=== PATIENT | male | born 1940 | race Caucasian/White ===

== ENCOUNTER 2023-11-08 08:04 | Outpatient (CLI) | payer MEDICARE, BC, SELFPAY | END 2023-11-08 08:05 | disposition home or self-care (01) | LOC: NFLDREF 11-29 12:26 | PROVIDERS: PCP Internal Medicine; Referring Provider Internal Medicine; Visit Provider Internal Medicine | DX: I10 Essential (primary) hypertension (principal); Z12.5 Encounter for screening for malignant neoplasm of prostate | CPT/HCPCS: 80053; 80061; G0103 ==

== ENCOUNTER 2024-03-08 14:40 | Outpatient (CLI) | payer MEDICARE, SELFPAY | END 2024-03-08 14:41 | disposition home or self-care (01) | LOC: NFLDREF 14:41 | PROVIDERS: PCP Internal Medicine; Visit Provider Internal Medicine | DX: R60.9 Edema, unspecified (principal); I10 Essential (primary) hypertension | CPT/HCPCS: 84443 ==

== ENCOUNTER 2024-11-22 08:15 | Outpatient (CLI) | payer MEDICARE, BC, OTHER, SELFPAY | END 2024-11-22 08:16 | disposition home or self-care (01) | PROVIDERS: PCP Internal Medicine; Visit Provider Internal Medicine | DX: R63.4 Abnormal weight loss (principal); I10 Essential (primary) hypertension; R60.0 Localized edema | CPT/HCPCS: 80053; 80061; 84443 ==

== ENCOUNTER 2024-12-08 10:25 | Emergency (ER) | payer MEDICARE, BC, SELFPAY ==
--- OUTSIDE RECORDS SUMMARY | 2023-02-18 11:08 | XMS_ITS | Continuity of Care Document ---
Author Organization [facility] Address [address] [place] [address] Phone Care Team Providers Care Prevention Rn Name Role Phone Andre Win MD Unavailable Unavailable Allergies, Adverse Reactions, Alerts Substance Reaction Status Criticality erythromycin base Active No Informa tion Sulfa (Sulfonamide Antibiotics) Active No Information Medications Medication Instructions Dosage Effective Dates (start - stop) Status Comments propranolol ER 60 mg capsule,24 hr,extended release take 1 capsule by oral route 2 times every day 60 MG - Active ranitidine 150 mg tablet take 1 tablet by oral route every day - Active melatonin 3 mg tablet take 1 tablet by o ral route every bedtime 1 tablet - Active loperamide 2 mg tablet take 1 tablet by oral route after 1st loose stool and 1 tablet (2 mg) after each next bowel movement; do not exceed 16 mg in 24hrs as needed 2 MG - Active Mapap (acetaminophen) 500 mg capsule take 1 capsule by oral route every hour as needed as needed 500 MG - Active Procedures Procedure Date Ep Intermediate Exam RNFL Refraction Post Operative P O Visit P O Visit Cat/ Ex With Phaco With IOL OC Biometry Refraction Post Operative P O Visit Refraction Post Operative P O Visit Cat/ Ex With Phaco With IOL OC Biometry OC Biometry Pre-operative Exam Pre Pay NOS Refraction RNFL EP Compre Exam W Or Withou Ref 20 Muñoz Aranda Lv III Ep Intermediate Exam Pre Pay NOS RNFL Refraction Corneal Pachymetry EP Compre Exam W Or Withou Ref 19 Muñoz Aranda Lv III Ep Intermediate Exam Pre Pay NOS Refraction RNFL 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, [address], [place], [place], [id number] , [place] tel:[phone] [facility] [place] No Information 3 Quirino Powell. [address], [place], [place], [id number], [place]. [phone] [facility], [address], [place], [place], [id number] , [place] tel:[phone] [facility] [place] pressure check (chief complaint) Open angle with borderline findings, low risk, bilateral 1 Quirino Powell. [address], [place], [place], [id number], [place]. [phone] Referring Provider: Andre Win MD O, [address], [place], [address] . tel:[phone] [facility], [address] [place], [place], [id number] , [place] [phone] [facility] [place] post op (chief complaint) Presence of intraocular lensDry eye syndrome of bilateral lacrimal glands 1 Quirino Powell. [address], [place], [place], [id number], [place]. [phone] Referring Provider: Andre Stevenson, [address], [place], [address] . tel:[phone] Provider: Andre Stevenson, [address], [place], [address] . tel:[phone] [facility], [address], [place], [place], [id number] , [place] tel: [phone] [facility] [place] post op (chief complaint) Presence of intraocular lens 1 Quirino Powell. [address], [place], [place], [id number], [place]. tel:[phone] Referring Provider: Andre Stevenson, [address], [place], [address] . tel:[phone] Provider: Andre Stevenson, [address], [place], [address] . tel:[phone] [facility], [address], [place], [place], [id number] , [place] tel:[phone] [facility] Age-related nuclear cataract, left eye 1 [facility]. [address], [place], [place], [id number], [place]. tel:[phone] [facility], [address], [place], [place], [id number] , [place] tel:[phone] [facility] [place] No Information 1 Quirino Powell. [address], [place], [place], [id number], [place]. tel:[phone] Referring Provider: Andre Stevenson, [address], [place], [address] . tel:[phone] sulting Provider: Andre Stevenson, [address], [place], [address] . tel:[phone] [facility], [address], [place], [place], [id number] , [place] tel: [phone] [facility] [place] Age-related nuclear cataract, left eye 1 Quirino Powell. [address], [place], [place], [id number], [place]. tel:[phone] [facility], [address], [place], [place], [id number] , [place] tel: [phone] [facility] [place] Age-related nuclear cataract, left eye 1 Quirino Powell. [address], [place], [place], [id number], [place]. tel:[phone] [facility], [address], [place], [place], [address] , [place] tel: [phone] [facility] [place] post op of CE IOL OD (chief complaint) cataract (chief complaint) Presence of intraocular lensAge-related nuclear cataract of left eye 1 Quirino Powell. [address], [place], [place], [address], [place]. tel:[phone] Referring Provider: Andre Stevenson, [address], [place], [address] . tel: [phone] sulting Provider: Andre Stevenson, [address], [place], [address] . tel:[phone] [facility], [address], [place], [place], [address] , [place] tel: [phone] [facility] [place] PO (chief complaint) cataract (chief complaint) Presence of intraocular lensAge-related nuclear cataract, left eye 1 Quirino Powell. [address], [place], [place], [id number], [place]. [phone] Referring Provider: Andre Stevenson, [address], [place], [address] . tel:[phone] sulting Provider: Andre Stevenson, [address], [place], [address] . tel:[phone] [facility], [address], [place], [place], [address] , [place] tel:[phone] [facility] Combined forms of age-related cataract, right eye 1 [facility]. [address], [place], [place], [id number], [place]. tel:[phone] [facility], [address], [place], [place], [address] , [place] tel: [phone] [facility] [place] No Information 1 Quirino Powell. [address], [place], [place], [id number], [place]. tel:[phone] Referring Provider: Andre Stevenson, [address], [place], [address] . tel:[phone] sulting Provider: Andre Stevenson, [address], [place], [address] . tel:[phone] [facility], [address], [place], [place], [id number] , [place] tel:[phone] [facility] [place] Combined forms of age-related cataract, right eye 1 Quirino Powell. [address], [place], [place], [address], [place]. tel:[phone] [facility], [address], [place], [place], [address] , [place] tel: [phone] [facility] Combined forms of age-related cataract, bilateralCombin ed forms of age-related cataract, right eye 0 Quirino Powell. [address], [place], [place], [address], [place]. tel:[phone] Referring Provider: Andre Stevenson, [address], [place], [address] . tel:[phone] [facility], [address], [place], [place], [id number] , [place] tel: [phone] [facility] glaucoma, pressure check (chief complaint) blurry vision (chief complaint) Primary open-angle glaucoma, bilateral, mild stageCombined forms of age-related cataract, bilateral 0 Quirino Powell. [address], [place], [place], [id number], [place]. tel:[phone] Referring Provider: Andre Stevenson, [address], [place], [address] . tel:[phone] [facility], [address], [place], [place], [address] , [place] tel: [phone] [facility] [place] glaucoma suspect (chief complaint) Open angle with borderline findings, low risk, bilateral 0 Quirino Powell. [address], [place], [place], [id number], [place]. tel:[phone] Referring Provider: Andre Stevenson, [address], [place], [address] . tel:[phone] [facility], [address], [place], [place], [id number] , [place] tel:[phone] [facility] [place] Glaucoma Suspect (chief complaint) Open angle with borderline findings, low risk, bilateralCombin ed forms of age-related cataract, right eyeAge-related nuclear cataract of left eye 9 Quirino Powell. [address], [place], [place], [address], [place]. tel:[phone] Referring Provider: Andre Stevenson, [address], [place], [address] . tel:[phone] [facility], [address], [place], [place], [id number] , [place] tel:[phone] [facility] [place] glaucoma (chief complaint) Open angle with borderline findings, low risk, bilateral 9 Quirino Powell. [address], [place], [place], [address], [place]. [phone] Referring Provider: Andre Stevenson, [address], [place], [address] . tel:[phone] [facility], [address], [place], [place], [address] , [place] tel:[phone] [facility] [place] blurry vision (chief complaint) Combined forms of age-related cataract, bilateralOpen angle with borderline findings, low risk, bilateral Oct-1 8 Quirino Powell. [address], [place], [place], [id number], [place]. [phone] Referring Provider: Andre Stevenson, [address], [place], [address] . tel:[phone] Family History Family Member Type Diagnosis Age At Onset Brother Problem (finding) hypertension Payers Payer name Insurance type Covered green party ID Authoriza tion(s) Medicare MB [id number] [place] [id number] Social History Type Description Quantity Date Captured Comments Alcohol Use Details Unknown Caffeine Use Details Unknown Tobacco Use Status No Information Smoking Status No Information Sex Male Chief Complaint And Reason For Visit No Information Reason For Referral Reason For Referral No Information Plan Of Treatment Date Type Action Status Patient Education The Eye: Anatomy Sketch completed Patient Education Advance Directives: Car e Instructions completed Patient Education Cataracts: Care Instruc tions completed Patient Education Open-Angle Glaucoma: Ca re Instructions completed Patient Education Open-Angle Glaucoma: Ca re Instructions completed History Of Present Illness Encounter Date Complaint History Of Prese nt Illness pressure check Returning 1m lat e for pressure check. 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 States when getting IOP check results where OD 9 and OS 6. Machine performed was the NCT. Has not used lat in 1m and dorz/bernadette (has not taken since Aug). Denies pain. post op 2 week post op C E/IOL OS and 4 week post op CE/IOL OD. Has noticed an improvement in vision since surgery OU. Vision is clear and is happy with outcome so far OU. Denies pain, flashing lights, floaters, or double vision caused by the surgery OU. Using dorz/bernadette BID OU and latanoprost QHS OU. States he has been using his pred and oflox, used it this morning OU. post op 1 day return for PO IOL OS and for 2 weeks PO IOL OD. VA OS has improved, seeing clearer. VA OD is doing well also. OU feeling comfortable at this time. Using pred and oflox QID OS and latanoprost QHS OU. He has not started dorz-bernadette yet, concerned he will have a skin reaction because he believes he had a reaction to timoptic in the past. post op of CE IOL OD The 80 year old male presents for evaluation of post op of CE IOL OD. Notes improvement to vision OD since surgery. Vision seems brighter and more clear. Denies pain, but states is having FBS and dryness but goes away when instilling OTC drops. Compliant with the instillation of pred and ofloxacin drops 4 times a day with 15 minute break between. cataract VA OS still blur ry and limits overall vision for distance for reading small print. Current glasses are not helping, and this limits his daily function. Would like to proceed with CE IOL OS. PO 1 day post-op CE c IOL OD. Slight burning but no pain. Vision has improved when looking at TV screen. Using oflox and pred OD qid. Also continues using Alphagan OU bid and latanoprost OU qhs. cataract The patient is p resent for evaluation of cataract OS. Visual function impairment: vision is fuzzy in the left eye for both looking at objects from a distance and when looking at small print. Current bifocal gls do not help clear up vision. Unable to perform daily activities due to vision impairment caused by cataract. blurry vision Visual function impairment. Feels VA OU is slightly more fuzzy. Notes difficulties reading captions on the television screen w/ use of RX. Getting worse over the past 6 months. glaucoma, pressure check 1m late for 6m follow up for continued care of Open angle with borderline findings, low risk, bilateral and OCT OU. VA OD doing fair, VA OS doing well w/ use of glasses. Using Alphagan BID OU, last dose 730AM. and latanoprost QHS OU, last dose 06/18/2020 930PM glaucoma suspect 6 month return for continue care of Open angle with borderline findings, low risk, bilateral and VF. Compliant with alphagan BID OU and latanoprost QHS OU. Pt reports he may need a slight tweak in Rx for more clarity up close x months. No other ocular complaints at this time. Glaucoma Suspect 6 month return for continued care of Open angle with borderline findings, low risk, bilateral. Using Travatan Z QHS OU and Alphagan TID OU instead of BID OU. VA OU is good, no ocular complaints at this time. glaucoma 6 month return v isit for continued care of Open angle with borderline findings, low risk, bilateral with VF OU. Using Alphagan BID OU last used 2 days ago and Travatan Z QHS OU as directed. VA OU has not noticed any changes since last visit, denies any pain or discomfort. Needs refills on Alphagan only. blurry vision New patient marni sweeney is due to blurry VA OU,(OD<OS). Has issues with glare x 2 years. Notes he notice some changes in VA OD with amsler grid, noticed this affect for years. Was not diagnosed with MD. Was diagnosed with glaucoma . Is currently using gtt. Functional Status Date Functional Assessmen t No Information Instructions Date Instruction Additional Infor mika Return in 1-2 years with Andre Win M.D. for refract/dilate Related to Open angle with borderline findings, low risk, bilateral Impression/Plan Related to Open angle with borderline findings, low risk, bilateral Return in 1 year sulema Win M.D. for refract/dilate Related to Presence of intraocular lens Impression/Plan Related to Dry e ye syndrome of bilateral lacrimal glands Impression/Plan Related to Prese nce of intraocular lens Keep appt on 08/22 Andre Win M.D. for Post-op refract/dilate Related to Presence of intraocular lens Impression/Plan Related to Prese nce of intraocular lens Return for surgery Related to Ag e-related nuclear cataract of left eye Impression/Plan Related to Prese nce of intraocular lens Impression/Plan Related to Age-r elated nuclear cataract of left eye Return in 1 week sulema Win M.D. for Post-op short Related to Presence of intraocular lens Impression/Plan Related to Prese nce of intraocular lens Impression/Plan Related to Age-r elated nuclear cataract, left eye Impression/Plan Related to Combi sheng forms of age-related cataract, bilateral Return for surgery Related to Co mbined forms of age-related cataract, bilateral Impression/Plan Related to Prima ry open-angle glaucoma, bilateral, mild stage Impression/Plan Related to Combi sheng forms of age-related cataract, bilateral Return in 6 months w mariela Win M.D. for long refract Related to Open angle with borderline findings, low risk, bilateral Impression/Plan Related to Open angle with borderline findings, low risk, bilateral Return in 6 months w mariela Win M.D. for short exam and VF Related to Open angle with borderline findings, low risk, bilateral Impression/Plan Related to Age-r elated nuclear cataract of left eye Impression/Plan Related to Combi sheng forms of age-related cataract, right eye Impression/Plan Related to Open angle with borderline findings, low risk, bilateral Return in 6 months w mariela Win M.D. for long refract Related to Open angle with borderline findings, low risk, bilateral Impression/Plan Related to Open angle with borderline findings, low risk, bilateral Return in 6 months w mariela Win M.D. for short exam and VF Related to Open angle with borderline findings, low risk, bilateral Impression/Plan Related to Open angle with borderline findings, low risk, bilateral Impression/Plan Related to Combi sheng forms of age-related cataract, bilateral Assessments Type Assessment Date No Information Patient Care Teams Name Effective Dates (start - stop) Status Members No Information
--- OUTSIDE RECORDS SUMMARY | 2023-02-18 11:08 | XMS_ITS | Continuity of Care Document ---
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 [address], [place], [place], [id number], [place]. [phone] [facility], [address], [place], [place], [id number] , [place] tel:[phone] [facility] [place] pressure check (chief complaint) Open angle with borderline findings, low risk, bilateral 1 Quirino Powell. [address], [place], [place], [id number], [place]. [phone] Referring Provider: Andre Win MD O, [address], [place], [address] . tel:[phone] [facility], [address] [place], [place], [id number] , [place] [phone] [facility] [place] post op (chief complaint) Presence of intraocular lensDry eye syndrome of bilateral lacrimal glands 1 Quirino Powell. [address], [place], [place], [id number], [place]. [phone] Referring Provider: Andre Stevenson, [address], [place], [address] . tel:[phone] [facility] Provider: Andre Stevenson, [address], [place], [address] . tel:[phone] [facility], [address], [place], [place], [id number] , [place] tel: [phone] [facility] [place] post op (chief complaint) Presence of intraocular lens 1 Quirino Powell. [address], [place], [place], [id number], [place]. tel:[phone] Referring Provider: Andre Stevenson, [address], [place], [address] . tel:[phone] Provider: Andre Stevenson, [address], [place], [address] . tel:[phone] [facility], [address], [place], [place], [id number] , [place] tel:[phone] [facility] Age-related nuclear cataract, left eye 1 [facility]. [address], [place], [place], [id number], [place]. tel:[phone] [facility], [address], [place], [place], [id number] , [place] tel:[phone] [facility] [place] No Information 1 Quirino Powell. [address], [place], [place], [id number], [place]. tel:[phone] Referring Provider: Andre Stevenson, [address], [place], [address] . tel:[phone] sulting Provider: Andre Stevenson, [address], [place], [address] . tel:[phone] [facility], [address], [place], [place], [id number] , [place] tel: [phone] [facility] [place] Age-related nuclear cataract, left eye 1 Quirino Powell. [address], [place], [place], [id number], [place]. tel:[phone] [facility], [address], [place], [place], [id number] , [place] tel: [phone] [facility] [place] Age-related nuclear cataract, left eye 1 Quirino Powell. [address], [place], [place], [id number], [place]. tel:[phone] [facility], [address], [place], [place], [id number] , [place] tel: [phone] [facility] post op of CE IOL OD (chief complaint) cataract (chief complaint) Presence of intraocular lensAge-related nuclear cataract of left eye 1 Quirino Powell. [address], [place], [place], [id number], [place]. tel:[phone] Referring Provider: Andre Stevenson, [address], [place], [address] . tel:[phone] sulting Provider: Andre Stevenson, [address], [place], [address] . tel:[phone] [facility], [address], [place], [place], [id number] , [place] tel: [phone] [facility] [place] PO (chief complaint) cataract (chief complaint) Presence of intraocular lensAge-related nuclear cataract, left eye 1 Quirino Powell. [address], [place], [place], [id number], [place]. [phone] Referring Provider: Andre Stevenson, [address], [place], [address] . tel:[phone] sulting Provider: Andre Stevenson, [address], [place], [address] . tel:[phone] [facility], [address], [place], [place], [id number] , [place] tel:[phone] [facility] Combined forms of age-related cataract, right eye 1 [facility]. [address], [place], [place], [id number], [place]. tel:[phone] [facility], [address], [place], [place], [address] , [place] tel: [phone] [facility] [place] No Information 1 Quirino Powell. [address], [place], [place], [id number], [place]. tel:[phone] Referring Provider: Andre Stevenson, [address], [place], [address] . tel:[phone] sulting Provider: Andre Stevenson, [address], [place], [address] . tel:[phone] [facility], [address], [place], [place], [address] , [place] tel:[phone] [facility] Combined forms of age-related cataract, right eye 1 Quirino Powell. [address], [place], [place], [id number], [place]. tel:[phone] [facility], [address], [place], [place], [address] , [place] tel: [phone] [facility] Combined forms of age-related cataract, bilateralCombin ed forms of age-related cataract, right eye 0 Quirino Powell. [address], [place], [place], [address], [place]. tel:[phone] Referring Provider: Andre Stevenson, [address], [place], [address] . tel:[phone] [facility], [address], [place], [place], [id number] , [place] tel: [phone] [facility] glaucoma, pressure check (chief complaint) blurry vision (chief complaint) Primary open-angle glaucoma, bilateral, mild stageCombined forms of age-related cataract, bilateral 0 Quirino Powell. [address], [place], [place], [id number], [place]. tel:[phone] Referring Provider: Andre Stevenson, [address], [place], [address] . tel:[phone] [facility], [address], [place], [place], [id number] , [place] tel: [phone] [facility] glaucoma suspect (chief complaint) Open angle with borderline findings, low risk, bilateral 0 Quirino Powell. [address], [place], [place], [id number], [place]. tel:[phone] Referring Provider: Andre Stevenson, [address], [place], [address] . tel:[phone] [facility], [address], [place], [place], [address] , [place] tel:[phone] [facility] Glaucoma Suspect (chief complaint) Open angle with borderline findings, low risk, bilateralCombin ed forms of age-related cataract, right eyeAge-related nuclear cataract of left eye 9 Quirino Powell. [address], [place], [place], [id number], [place]. tel:[phone] Referring Provider: Andre Stevenson, [address], [place], [address] . tel:[phone] [facility], [address], [place], [place], [id number] , [place] tel:[phone] [facility] glaucoma (chief complaint) Open angle with borderline findings, low risk, bilateral 9 Quirino Powell. [address], [place], [place], [id number], [place]. [phone] Referring Provider: Andre Stevenson, [address], [place], [address] . tel:[phone] [facility], [address], [place], [place], [id number] , [place] tel:[phone] [facility] blurry vision (chief complaint) Combined forms of age-related cataract, bilateralOpen angle with borderline findings, low risk, bilateral Oct-1 8 Quirino Powell. [address], [place], [place], [id number], [place]. [phone] Referring Provider: Andre Stevenson, [address], [place], [address] . tel:[phone] Family History Family Member Type Diagnosis Age At Onset Brother Problem (finding) hypertension Payers Payer name Insurance type Covered constitution party ID Authoriza tion(s) Medicare MB [id number] [place] [id number] Social History Type Description Quantity Date Captured [...] e for pressure check. 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 States when getting IOP check [...] sheng forms of age-related cataract, right eye Return in 6 months w mariela Win [...]
[2024-12-08] VITALS (44 sets, daily range): BP systolic 134–174; BP diastolic 72–90; PULSE 63–81; RESP 16–20; TEMP 36.3; O2SAT 92–99; BMI 17.8
--- NOTE | 2024-12-08 11:08 | CRLHL7_ITS ---
For Patients: As a result of the Century Cures Act, medical imaging exams and procedure reports are released immediately into your electronic medical record. You may view this report before your referring provider. If you have questions, please contact your health care provider. INDICATION: Fall. Head strike. No additional clinical history is given. COMPARISON: None available. TECHNIQUE: CT of the cervical spine without intravenous contrast. Please note that all CT scans at this facility use dose modulation, iterative reconstruction, and/or weight-based dosing when appropriate to reduce radiation dose to as low as reasonably achievable. FINDINGS: Alignment: Degenerative grade 1 anterolisthesis of C6 on C7. No significant widening of the intervertebral disc spaces, interfacetal joints or interspinous distances. Vertebrae: Vertebral bodies, pedicles, laminae, articular, transverse and spinous processes are intact. Mild disc degeneration C4-C5 and C7-T1. Anterior annular calcifications/ossification are noted C4-C5, C5-C6 and C6-C7. Bilateral multilevel facet joint osteoarthrosis. The left C2-C3 facet joint is fused. 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 Soft Tissues: No perivertebral edema or hemorrhage. Extraspinal Anatomy: No significant findings. Biapical pleural-parenchymal scar is noted incidentally. IMPRESSION: No acute traumatic injury is identified. Incidental findings described in the body of the report. Please note that all CT scans at this facility use dose modulation, iterative reconstruction, and/or weight-based dosing when appropriate to reduce radiation dose to as low as reasonably achievable. Dictated by Reji Landon MD @ 12/08/2024 12:18:11 PM (Electronically Signed)
--- NOTE | 2024-12-08 11:08 | CRLHL7_ITS ---
For Patients: As a result of the Century Cures Act, medical imaging exams and procedure reports are released immediately into your electronic medical record. You may view this report before your referring provider. If you have questions, please contact your health care provider. INDICATION: FELL, HIT HEAD, ABRASION TOP OF HEAD. (Sic) COMPARISON: None available. TECHNIQUE: CT of the head without intravenous contrast. Please note that all CT scans at this facility use dose modulation, iterative reconstruction, and/or weight-based dosing when appropriate to reduce radiation dose to as low as reasonably achievable. FINDINGS: No acute traumatic injury is identified. No acute infarct. No intracranial mass or mass effect. No hydrocephalus. No intracranial hemorrhage. 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 Bilateral cerebral white matter symmetrical mildly inhomogeneous white matter hypoattenuation consistent with chronic ischemic gliotic changes. RapidAI ASPECTS Score: Not performed/available at the time of dictation. Intact skull base and cranial vault. Visualized orbits are without significant incidental findings. Bilateral lens implants are noted incidentally. Right maxillary sinus floor retention cyst. The visualized paranasal sinuses and mastoid air cells are otherwise clear. Focal left parietal scalp paramedian soft tissue swelling (8; 79) and subcutaneous round lucency consistent with a laceration and associated edema/hemorrhage. IMPRESSION: 1. Left parietal scalp injury as above corresponding to the clinical history. No underlying calvarial fracture. No intracranial hemorrhage or other acute/significant incidental findings. 2. Additional findings as above. Please note that all CT scans at this facility use dose modulation, iterative reconstruction, and/or weight-based dosing when appropriate to reduce radiation dose to as low as reasonably achievable. Dictated by Reji Landon MD @ 12/08/2024 12:10:44 PM (Electronically Signed)
[2024-12-08 11:31] LABS: Basophils Absolute Auto 0.03 K/uL (0.00-0.30); Basophils Percent Auto 0.6 % (0.0-3.0); Eosinophils Absolute Auto 0.06 K/uL (0.00-0.50); Eosinophils Percent Auto 1.3 % (0.0-7.0); Hematocrit 33.6 % (37.0-53.0); Hemoglobin* 10.6 gm/dL (13.5-17.5); Mean Corpuscular HGB Conc 32 gm/dL (32-36); Mean Corpuscular Hemoglobin 32 pg (26-34); Mean Corpuscular Volume 101 fL (80-100); Monocytes Percent Auto 8.4 % (0.0-11.0); Neutrophils Percent Auto 81.7 % (42.0-72.0); Platelet Count* 244 K/uL (140-440); RDW Coefficient of Variation % 12.8 % (11.5-15.5); Red Blood Count 3.33 m/uL (4.30-5.90); White Blood Count* 4.77 K/uL (4.50-11.00)
[2024-12-08 11:40] LABS: Slide Review Reflex No
[2024-12-08 11:42] LABS: Chloride* 102 mmol/L (96-114); Potassium* 4.8 mmol/L (3.6-5.1); Sodium* 140 mmol/L (135-149)
[2024-12-08 11:45] LABS: Anion Gap 9 mEq/L (7-15); Blood Urea Nitrogen* 61 mg/dL (7-30); Calcium* 9.6 mg/dL (8.4-10.6); Carbon Dioxide* 29 mmol/L (20-32); Creatinine* 1.5 mg/dL (0.5-1.5); Est. Creatinine Clearance* 25.41; Estimated Glomerular Filt Rate 45 ml/min; Glucose* 107 mg/dL (60-115)
--- NOTE | 2024-12-08 11:45 | ED.FALL ---
HPI - Fall General Date Seen: 12/08/24 Chief Complaint: Fall/Minor Trauma Stated Complaint: Fall, head lac Time Seen by Provider: 12/08/24 10:36 Source: patient Mode of arrival: ambulatory Limitations: no limitations History of Present Illness HPI Narrative: Patient is an 84-year-old will presenting to the emergency department after a fall. 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 He believes he hit his head on the edge of the kitchen table. He is not remember any dizziness or lightheadedness prior to the fall but he says he does not remember exactly what happened. Was able to get himself up. His family rate came to check on him as he does daily and notice the patient is sitting at the table and acting normally but was covered in blood. The patient was able to get the bleeding to stop prior to the family members arrival. Patient is acting normally according to the family member. Patient denies any other injuries. No other concerns noted he denies fevers, chills, chest pain, shortness of breath, headache, vision changes, weakness, numbness. Related Data Home Medications ?Medication ?Instructions ?Recorded ?Confirmed bismuth subsalicylate 262 mg/15 mL 262 mg PO Q30-60M PRN 11/01/23 11/22/24 oral suspension (Kaopectate (bismuth subsalicylate)) calcium carbonate (Tums) 200 mg PO QHS 11/01/23 11/22/24 fluticasone propionate 50 1 spray intranasal QDAY 11/01/23 11/22/24 mcg/actuation nasal spray,suspension (Allergy Relief (fluticasone)) ibuprofen 200 mg tablet (Advil) 200 mg PO Q6H PRN 11/01/23 11/22/24 propylene glycol 0.6 % eye drops 1 drp ophthalmic (eye) QDAY PRN 11/01/23 11/22/24 (Systane Balance) Previous Rx's ?Medication ?Instructions ?Recorded amlodipine 5 mg-valsartan 160 1 tab PO QDAY #90 tabs 03/08/24 mg-hydrochlorothiazide 12.5 mg tablet furosemide 20 mg tablet (Lasix) 20 mg PO QAM edema #90 tabs 03/12/25 Allergies Allergy/AdvReac Type Severity Reaction Status Date / Time No Known Drug Allergies Allergy Verified 12/08/24 10:30 Review of Systems Status of ROS: Reports: 10 or more systems reviewed and unremarkable except as noted in History and below [facility] Medical History Weight loss ?R63.4 - Abnormal weight loss (ICD-10) Foot pain ?M79.673 - Pain in unspecified foot (ICD-10) Fall ?W19.XXXA - Unspecified fall, initial encounter (ICD-10) Sciatica ?M54.30 - Sciatica, unspecified side (ICD-10) Edema ?R60.9 - Edema, unspecified (ICD-10) Essential tremor ?G25.0 - Essential tremor (ICD-10) Back pain ?M54.9 - Dorsalgia, unspecified (ICD-10) Hypertension ?I10 - Essential (primary) hypertension (ICD-10) Social History What is your current living situation?: I presently have a place to live Problems where you live: no known problems In the past 12 months, utilities in danger of being shut off: no In past 12 months, lack of transportation kept you from medical appts, meetings, work, or getting things needed for daily living: no In the past 12 mos, have been you worried that your food would run out before you had money to buy more?: never true In the past 12 mos, the food you bought just didn't last and you didn't have money to buy more?: never true How often does anyone, including family, friends and others, physically hurt you: never How often does anyone, including family, friends and others, insult or talk down to you: never How often does anyone, including family, friends and others, threaten you with harm: never How often does anyone, including family, friends and others, scream or curse at you: never Exam Narrative: Exam Narrative: Const: Well-nourished, Well-developed, in mild distress Eyes: PERRL, no conjunctival injection, and symmetrical lids HENT: Atraumatic external nose and ears. Moist mucous membranes. Laceration noted to the top of his head with quite a lot of dried blood around it. Neck: Symmetric, trachea midline, No thyromegaly. CVS: RRR, No murmurs or gallops. Peripheral pulses 2+ and equal in all extremities RESP: Unlabored respiratory effort. Clear to auscultation bilaterally. GI: Nontender/Nondistended, No rebound or guarding. MSK:Extremities w/o deformity, Normal Active ROM Skin: Warm, Dry. No rashes or lesions. Neuro: Normal Muscle tone, No focal neurological deficits. Psych: Awake, Alert, & Oriented x3. Appropriate mood and affect. Const: Vital Signs, click to edit/add: Vital Signs - 24 hr 12/08/24 10:31 Temperature 97.4 F L Pulse Rate [Pulse Oximeter] 70 Respiratory Rate 20 Blood Pressure [Ri ght Upper Arm] 170/78 H Pulse Oximetry 98 Oxygen Delivery Me thod Room Air Course Vital Signs Vital signs: Initial Vital Signs Temperature 97.4 F L 12/08/24 10:31 Temperature Source Temporal Artery Scan 12/08/24 10:31 Pulse Rate 70 12/08/24 10:31 Respiratory Rate 20 12/08/24 10:31 Blood Pressure 170/78 H 12/08/24 10:31 Blood Pressure Mean 108 H 12/08/24 10:31 Pulse Oximetry 98 12/08/24 10:31 Oxygen Delivery Method Room Air 12/08/24 10:31 Vital Signs Temperature 97.4 F L 12/08/24 10:31 Pulse Rate 70 12/08/24 10:31 Respiratory Rate 20 12/08/24 10:31 Blood Pressure 170/78 H 12/08/24 10:31 Pulse Oximetry 98 12/08/24 10:31 Oxygen Delivery Method Room Air 12/08/24 10:31 Temperature 97.4 F L 12/08/24 10:31 Pulse Rate 70 12/08/24 10:31 Respiratory Rate 20 12/08/24 10:31 Blood Pressure 170/78 H 12/08/24 10:31 Pulse Oximetry 98 12/08/24 10:31 Oxygen Delivery Method Room Air 12/08/24 10:31 Medications Administered Medications: Discontinued Medications Generic Name Dose Route Start Last Admin Trade Name Freq PRN Reason Stop Dose Admin Labetalol HCl 5 mg 12/08/24 12:54 12/08/24 15:20 Labetalol Hcl 5 Mg/Ml Inj IVP 12/08/24 12:55 5 mg ONCE ONE Administration MDM - Fall MDM Narrative Medical decision making narrative: Patient is an 84-year-old male presenting to the emergency department after a fall. While this does sound like it was likely mechanical fall he cannot say for certain so due to that I will do an EKG, BMP, CBC, magnesium, troponin just to rule out any other abnormalities. Will do CT scan of his head and cervical spine. Nine bernabe were placed in his scalp for the laceration. Laceration repair was performed and well tolerated. Lab work returned showing no concerning abnormalities. Hemoglobin appears to be at baseline. CT scan of cervical spine shows no acute findings. CT scan of his brain shows a 7 mm subacute subdural hematoma in the same spot as his laceration. I did speak to the radiologist he does believe this is subcutaneous not seem like it came from this fall. Patient denies any other falls other than hitting his forehead when he tripped about a month ago. I am not sure how he has only a subacute bleed at this time. Is not having any mass effect. I did speak to Dr. Maynard of [facility] in he states that the patient is interested in neuro surgery surgical treatment that they can transfer the patient to a 9 ICU bed. If the patient would prefer to be nonsurgical and is comfortable with outpatient neurosurgery consult he would just need a repeat head CT scan in 6 hours. I had a long conversation with the patient and initially he was saying if there is anything that can be done he would want it and would be open the surgery at this time. I did speak to Dr. Beltre of [facility] hospitalist group and he accepted the patient for transfer. After this the patient had a short period where he was refusing to be transferred just want to go home. He did agree to the [address] He was pretty emotional at this time. Eventually he calmed down and now would like to be transferred for the nerve surgery consult again. Lab Data Labs: Lab Results 12/08/24 12/08/24 Range/Units 11:20 12:54 WBC 4.77 (4.50-11.00) K/uL RBC 3.33 L (4.30-5.90) m/uL Hgb 10.6 L (13.5-17.5) gm/dL Hct 33.6 L (37.0-53.0) % MCV 101 H (80-100) fL MCH 32 (26-34) pg MCHC 32 (32-36) gm/dL RDW Coeff of [place] 12.8 (11.5-15.5) % Plt Count 244 (140-440) K/uL Neut % (Auto) 81.7 H (42.0-72.0) % Lymph % (Auto) 8.0 L (20-44) % [place] % (Auto) 8.4 (0.0-11.0) % Eos % (Auto) 1.3 (0.0-7.0) % Baso % (Auto) 0.6 (0.0-3.0) % Neut # (Auto) 3.90 (1.7-7.0) K/uL Lymph # (Auto) 0.40 L (0.90-2.90) K/uL [place] # (Auto) 0.40 (0.00-0.90) K/UL Eos # (Auto) 0.06 (0.00-0.50) K/uL Baso # (Auto) 0.03 (0.00-0.30) K/uL Abs Immat Gran (auto) 0.00 (0.00-0.30) K/uL Imm/Tot Granulo (auto) 0.0 % INR 0.97 (0.91-1.10) APTT 29 (23-33) Seconds Sodium 140 (135-149) mmol/L Potassium 4.8 (3.6-5.1) mmol/L Chloride 102 (96-114) mmol/L Carbon Dioxide 29 (20-32) mmol/L Anion Gap 9 (7-15) mEq/L BUN 61 H (7-30) mg/dL Creatinine 1.5 (0.5-1.5) mg/dL Estimated Creat Clear 25.41 Estimated GFR 45 ml/min Glucose 107 (60-115) mg/dL Calcium 9.6 (8.4-10.6) mg/dL Magnesium 2.9 H (1.5-2.6) mg/dL Lab Acknowledgement Test Added POC Troponin I 0.02 (0.01-0.04) ng/ml Imaging Data CT scan cervical spine: Attestation: I have reviewed the pertinent imaging results. Radiologist's impression: No acute traumatic injury is identified. Incidental findings described in the body of the report. Please note that all CT scans at this facility use dose modulation, iterative reconstruction, and/or weight-based dosing when appropriate to reduce radiation dose to as low as reasonably achievable. Dictated by Reji Landon MD @ 12/08/2024 12:18:[address] scan head: Attestation: I have reviewed the pertinent imaging results. Radiologist's impression: 1. Left parietal scalp injury as above corresponding to the clinical history. No underlying calvarial fracture. No intracranial hemorrhage or other acute/significant incidental findings. 2. Additional findings as above. Please note that all CT scans at this facility use dose modulation, iterative reconstruction, and/or weight-based dosing when appropriate to reduce radiation dose to as low as reasonably achievable. Dictated by Reji Landon MD @ 12/08/2024 12:10:44 PM ----- ADDENDUM ----- ADDENDUM: ADDENDUM: There is a left parafalcine subacute subdural hematoma which is slightly hyperattenuating compared to CSF and lower in attenuation than the cerebral cortex, measuring 7 mm in greatest thickness (coronal series 8; image 61). No mass effect. Bilateral cerebral atrophy is noted with widening of the subarachnoid spaces. This was discussed with the ordering provider Dr. Stephens at 12:20 p.m. 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 ECG Data Prior ECG tracings: not available for review Interpretation: Normal sinus rhythm with a rate of 70 beats per minute, normal intervals, normal axis, no ST or T-wave abnormalities Discharge Plan Discharge Clinical Impression: Subacute subdural hematoma Patient Disposition: Xfer Other Condition: Stable Prescriptions: No Action ibuprofen [Advil] 200 mg tablet 200 mg PO Q6H PRN calcium carbonate [Tums] 200 mg calcium (500 mg) tablet,chewable 200 mg PO QHS bismuth subsalicylate [Kaopectate (bismuth subsalicy)] 262 mg/15 mL suspension 262 mg PO Q30-60M PRN Rx Instructions: do not exceed 8 doses in a 24 hour period Systane Balance 0.6 % drops 1 drp ophthalmic (eye) QDAY PRN fluticasone propionate [Allergy Relief (fluticasone)] 50 mcg/actuation spray,suspension 1 spray intranasal QDAY Rx Instructions: administer into each nostril furosemide [Lasix] 20 mg tablet 20 mg PO QAM Qty: 90 3RF zqlamcjujg-ohyielyam-gbbwaxaci 5-160-12.5 mg tablet 1 tab PO QDAY Qty: 90 3RF Stand Alone Forms: MyHealth Info Instructions Procedures Laceration Scalp: Name of person performing procedure: Devin Banda Site: scalp Size (cm): 6 Description: linear and clean Depth: simple, single layer Local Anesthetic: lidocaine 1% Amount of anesthesia used (mL): 5 Pre-repair: wound explored, irrigated extensively and deep structures intact Skin layer closed with: other (9 Bernabe)
[2024-12-08 11:46] LABS: Magnesium* 2.9 mg/dL (1.5-2.6)
[2024-12-08 12:11] LABS: Troponin, Point-of-Care* 0.02 ng/ml (0.01-0.04)
[2024-12-08 13:11] LABS: INR 0.97 (0.91-1.10); Prothrombin Time 13.7 Seconds
[2024-12-08 13:12] LABS: Partial Thromboplastin Time* 29 Seconds (23-33)
[2024-12-08] MEDS: LABETALOL HCL 5 MG/ML inj IVP (15:20)
== END 2024-12-08 19:22 | disposition other institution (70) ==
PROVIDERS: Emergency Provider Student in an Organized Health Care Education/Training Program; PCP Internal Medicine
DX: S06.5XAA Traumatic subdural hemorrhage with loss of consciousness status unknown, initial encounter (principal); S01.01XA Laceration without foreign body of scalp, initial encounter; W01.190A Fall on same level from slipping, tripping and stumbling with subsequent striking against furniture, initial encounter; Y93.9 Activity, unspecified; Y92.090 Kitchen in other non-institutional residence as the place of occurrence of the external cause
CPT/HCPCS: 12002; 36415; 70450; 72125; 80048; 83735; 84484; 85025; 85610; 85730; 93005; 96374; 99283; 99285

== ENCOUNTER 2024-12-08 19:02 | Outpatient (CLI) | payer MEDICARE, BC, SELFPAY | END 2024-12-08 19:03 | disposition home or self-care (01) | PROVIDERS: PCP Internal Medicine; Visit Provider Student in an Organized Health Care Education/Training Program | DX: S06.5XAA Traumatic subdural hemorrhage with loss of consciousness status unknown, initial encounter (principal) | CPT/HCPCS: A0425; A0427 ==

== ENCOUNTER 2025-02-28 08:37 | Outpatient (CLI) | payer MEDICARE, BC, SELFPAY | END 2025-02-28 08:38 | disposition home or self-care (01) | PROVIDERS: PCP Internal Medicine; Visit Provider Internal Medicine | DX: I10 Essential (primary) hypertension (principal); R60.9 Edema, unspecified | CPT/HCPCS: 80053; 84443 ==

== ENCOUNTER 2025-03-09 14:00 | Outpatient (CLI) | payer MEDICARE, BC, SELFPAY | END 2025-03-09 14:01 | disposition home or self-care (01) | LOC: RAD 14:02 | PROVIDERS: PCP Internal Medicine; Visit Provider Internal Medicine | DX: R60.9 Edema, unspecified (principal); I35.1 Nonrheumatic aortic (valve) insufficiency; I34.0 Nonrheumatic mitral (valve) insufficiency; I07.1 Rheumatic tricuspid insufficiency | CPT/HCPCS: 93306 ==

== ENCOUNTER 2025-03-20 14:49 | Emergency (ER) | payer MEDICARE, BC, SELFPAY ==
--- OUTSIDE RECORDS SUMMARY | 2025-03-20 14:53 | XMS_ITS | Clinical Summary ---
Author Organization [facility] Address [address] [place] [id number] Care Team Providers Care Component Lab Tech Name Role Phone Pcp, No Primary Care Provider Unavailabl e Allergies No known active allergies Medications amLODIPine-Valsa rtan-HCTZ 5-160-12.5 mg tablet Take 1 Tablet by mouth once daily. Active furosemide (Lasix) 20 mg tablet Take 20 mg by mouth once daily in the morning. Active melatonin 3 mg tablet Take 3 mg by mouth at bedtime. Active Active Problems Problem Noted Date Diagnosed Date SDH (subdural hematoma) 12/08/2024 HTN (hypertension) 12/08/2024 ACP (advance care planning) 12/08/2024 Encounters Date Type Department Care Team Description 03/09/2025 2:00 PM CDT Ancillary Procedure [facility] [address] [place] [address] from Last 3 Months Social History Tobacco Use Types Packs/Day Years Used Date Smoking Tobacco: Never Assessed Interpersonal Safety Answer Date Record ed Are you being hit, kicked, p ushed or yelled at (see row info)? No 12/08/2024 Interpersonal Safety Abuse 12 - 18 Not on file 12/08/2024 Interpersonal Safety Ambulatory Vulnerability No t on file 12/08/2024 Sex and Gender Information Value Date Recorded Sex Assigned at Not on file Legal Sex Male 2:12 PM CDT Gender Identity Not on file Sexual Orientation Not on file Last Filed Vital Signs Vital Sign Reading Time Taken Comments Blood Pressure 150/77 12/09/2024 8:19 AM CDT Pulse 57 12/09/2024 8:42 AM CDT Temperature 36.8 C (98.2 F) 12/09/2024 8:19 AM CDT Respiratory Rate 16 12/09/2024 8:19 AM CDT Oxygen Saturation 98% 12/09/2024 8:19 AM CDT Inhaled Oxygen Concentration - - Weight - - Height - - Body Mass Index - - Plan of Treatment Not on file Procedures Procedure Name Priority Date/Time Associated Diagnosis Comments ECHO TTE COMPLETE WO CONTRAST Routine 03/09/2025 2:50 PM CDT Edema, unspecified from Last 3 Months Results * ECHO TTE COMPLETE WO CONTRAST (03/09/2025 2:50 PM CDT) AORTIC VALVE MEAN PG 4 mmHg PEAK TR VELOCITY 2.3 m/s LVEDD 3.8 cm EJECTION FRACTION 55 - 60% Anatomical Region Laterality Modality Ultrasound 03/09/2025 2:18 PM CDT Narrative 03/09/2025 3:44 PM CDT ECHOCARDIOGRAM TIERRA JETT : 1940 84 years Study Date: 03/09/2025 2:18:26 PM Gender: M BP: 124/65 mmHg Height: 163.00 cm BSA: 1.50 m Weight: 48.00 kg Tech: RUSS Referring MD: HOME HERR Site: [facility] Reading Location: Mobile-OP Patient Location: Outpatient. Procedure: 2D, Color Doppler and Spectral Doppler. Indication for study: Edema Cardiac Rhythm: Irregular and with premature ventricular contractions.Study quality: Technically limited. Imaging limitations: This study was subject to imaging limitations due to body habitus and a prominent lung artifact. Final Impressions: 1. Technically limited exam. 2. Normal LV size, mildly increased wall thickness, normal global systolic function with an estimated EF of 55 - 60%. 3. Right ventricular cavity size is moderately enlarged, global systolic RV function is normal. 4. The aortic valve is sclerotic, no stenosis and mild to moderate regurgitation. 5. 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 6. Tricuspid valve is myxomatous, mild tricuspid regurgitation. 7. Normal estimated pulmonary pressures by tricuspid regurgitation velocity and right atrial pressure (22 mmHg plus RAP). 8. The inferior vena cava is normal sized, respiratory size variation less than 50%. 9. No pericardial effusion. Comparison There are no prior studies on this patient for comparison purposes. Chamber Sizes and Function Normal left ventricular size, mildly increased wall thickness, normal global systolic function with an estimated EF of 55 - 60%. No resting regional wall motion abnormality visualized. Left atrial size is normal. Right ventricular cavity size is moderately enlarged, global systolic RV function is normal. The right atrium is normal. The pulmonary artery is not well visualized. The sinus of Valsalva is normal sized. The ascending aorta is normal sized. Valves, RV Pressures and Diastolic Function The aortic valve is sclerotic, no stenosis and mild to moderate regurgitation. 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 Spectral Doppler shows Grade 1 pattern of LV diastolic filling. The tricuspid valve is myxomatous, mild tricuspid regurgitation. The tricuspid regurgitant velocity is 2.3 m/s, the estimated right ventricular systolic pressure is 22 mmHg plus right atrial pressure. There is normal estimated pulmonary pressure by tricuspid regurgitation velocity and right atrial pressure. The pulmonic valve is not well visualized. Trace pulmonary regurgitation. Masses, Effusion, Shunts There is no pericardial effusion. The inferior vena cava is normal sized, respiratory size variation less than 50%. Interatrial septum is aneurysmal. MEASUREMENTS AND CALCULATIONS 2-D Measurements and LV Function: LVID (d) 3.8 cm LV FS% (2D) 38 % LVID (s) 2.4 cm LVOT diameter 2.2 cm IVS (d) 1.4 cm HR 65 bpm LVPW (d) 1.2 cm Ao Sinus 3.9 cm Ao Sinus ULN 3.9 cm * Asc Ao 3.5 cm Asc Ao ULN 4.1 cm * LA 3.5 cm * Input age outside of range, reported values correspond to Age = 79 Diastology: Mitral Tissue Doppler E Peak 0.5 m/s e', Septum 0.06 m/s A Peak 1.0 m/s e', Lateral 0.06 m/s E/A 0.5 E/e' Average 8.69 DT 360 msec Aortic Valve: Vmax 1.4 m/s FRANCINE (V) 2.55 cm VTI 0.24 m FRANCINE (I) 2.84 cm LVOT V max 0.9 m/s Max PG 8 mmHg LVOT VTI 0.17 m Mean PG 4 mmHg SV 68 ml Dim Index 0.73 SV index 45 ml/m CO 4.4 l/min CI 3.0 l/min/m Mitral Valve: MVA 2.1 cm MV P 1/2 104 msec Tricuspid Valve and estimated PA pressures: TR Vmax 2.3 m/s TAPSE 2.3 cm TR maxG 22 mmHg . This study was interpreted by an [facility] accredited facility. CC: [facility] (med records) [facility]. Final Procedure Note Mike Bui MD - 03/09/2025 ECHOCARDIOGRAM TIERRA JETT : 1940 84 years Study Date: 03/09/2025 2:18:26 PM Gender: M BP: 124/65 mmHg Height: 163.00 cm BSA: 1.50 m Weight: 48.00 kg Tech: RUSS Referring MD: HOME HERR Site: [facility] Reading Location: Mobile-[facility] Patient Location: Outpatient. Procedure: 2D, Color Doppler and Spectral Doppler. Indication for study: Edema Cardiac Rhythm: Irregular and with premature ventricularcontractions.Study quality: Technically limited. Imaging limitations: This study was subject to imaging limitations due tobody habitus and a prominent lung artifact. Final Impressions: 1. Technically limited exam. 2. Normal LV size, mildly increased wall thickness, normal globalsystolic function with an estimated EF of 55 - 60%. 3. Right ventricular cavity size is moderately enlarged, global systolicRV function is normal. 4. The aortic valve is sclerotic, no stenosis and mild to moderateregurgitation. 5. The mitral valve is myxomatous with mild posterior leaflet prolapseand mild mitral regurgitation. 6. Tricuspid valve is myxomatous, mild tricuspid regurgitation. 7. Normal estimated pulmonary pressures by tricuspid regurgitationvelocity and right atrial pressure (22 mmHg plus RAP). 8. The inferior vena cava is normal sized, respiratory size variationless than 50%. 9. No pericardial effusion. Comparison There are no prior studies on this patient for comparison purposes. Chamber Sizes and Function Normal left ventricular size, mildly increased wall thickness, normalglobal systolic function with an estimated EF of 55 - 60%. No restingregional wall motion abnormality visualized. Left atrial size is normal.Right ventricular cavity size is moderately enlarged, global systolic RVfunction is normal. The right atrium is normal. The pulmonary artery isnot well visualized. The sinus of Valsalva is normal sized. The ascendingaorta is normal sized. Valves, RV Pressures and Diastolic Function The aortic valve is sclerotic, no stenosis and mild to moderateregurgitation. The mitral valve is myxomatous, mild to moderate mitralregurgitation. Spectral Doppler shows Grade 1 pattern of LV diastolicfilling. The tricuspid valve is myxomatous, mild tricuspid regurgitation.The tricuspid regurgitant velocity is 2.3 m/s, the estimated rightventricular systolic pressure is 22 mmHg plus right atrial pressure. Thereis normal estimated pulmonary pressure by tricuspid regurgitation velocityand right atrial pressure. The pulmonic valve is not well visualized.Trace pulmonary regurgitation. Masses, Effusion, Shunts There is no pericardial effusion. The inferior vena cava is normal sized,respiratory size variation less than 50%. Interatrial septum isaneurysmal. MEASUREMENTS AND CALCULATIONS 2-D Measurements and LV Function: LVID (d) 3.8 cm LV FS% (2D)38 % LVID (s) 2.4 cm LVOT diameter2.2 cm IVS (d) 1.4 cm HR65 bpm LVPW (d) 1.2 cm Ao Sinus 3.9 cm Ao Sinus ULN 3.9 cm * Asc Ao 3.5 cm Asc Ao ULN 4.1 cm * LA 3.5 cm * Input age outside of range, reported values correspond to Age = 79 Diastology: Mitral Tissue Doppler E Peak 0.5 m/s e', Septum 0.06 m/s A Peak 1.0 m/s e', Lateral 0.06 m/s E/A 0.5 E/e' Average 8.69 DT 360 msec Aortic Valve: Vmax 1.4 m/s FRANCINE (V) 2.55 cm VTI 0.24 m FRANCINE (I) 2.84 cm LVOT V max 0.9 m/s Max PG 8 mmHg LVOT VTI 0.17 m Mean PG 4 mmHg SV 68 ml Dim Index 0.73 SV index 45 ml/m CO 4.4 l/min CI 3.0 l/min/m Mitral Valve: MVA 2.1 cm MV P 1/2 104 msec Tricuspid Valve and estimated PA pressures: TR Vmax 2.3 m/s TAPSE 2.3 cm TR maxG 22 mmHg . This study was interpreted by an [facility] accredited facility. CC: [facility] (med records) [facility]. Final us Home Herr MD ECHO ORD Final Result from Last 3 Months Insurance [employer] [place] BL[place] HB ONLY MEDICARE PART B HB ONLY MEDICARE PART A HB ONLY [employer] [place] BLUE MR PB ONLY Advance Directives * DNR (Latest Code Status on File) Date Activated Date Inactivated Comments 12/08/2024 11:22 PM 12/09/2024 3:45 PM Question Answer Comments Code Status Discussion: Reviewed Preferences Care Teams Component Lab Tech Relationship Specialty Start Date End Date Pcp, No . PCP - General 12/08/24
[2025-03-20 15:00] VITALS: BP 127/66; PULSE 68; RESP 18; TEMP 36.6; O2SAT 98
--- NOTE | 2025-03-20 15:11 | ED.AMS ---
HPI - Altered Mental Status General Date Seen: 03/20/25 Chief Complaint: Altered Mental Status Stated Complaint: Confusion, Speech problems Time Seen by Provider: 03/20/25 15:00 History of Present Illness HPI narrative: 84-year-old gentleman presenting to the ER today with his family for evaluation of possible infection. The patient seems a little bit confused. He says he has no symptoms and is not sure why he is here in the ER. He is generally conversant, however his definitely confused. He is not know the day or the month. When we discussed recent events he is able to recall that he when out to ?[place] restaurant? a few days ago with his nephew. He had ?a [place] beer? that is 1 of his favorite there but he cannot tell me the name of the beer he drank. He is able to tell me that he has a case a bit at home and he likes to drink wine occasionally. His family indicate that he would normally be able to say the day of the week and expressed the name of the restaurant and beer. History is obtained from the patient's nephew and his nephews who brought him in. Apparently the patient is generally pretty independent. His nephew noted this morning that he seemed very confused which is a change for [place]. No other definite symptoms. As far as we know he has no recent falls. He has not had any fever. No known cough. No abdominal pain. As far as we know urination has been normal Per medical record he was here in the ER [place] in November 2024 after a fall. He had a scalp laceration. Head CT scan showed a 7 mm subacute subdural hematoma. He was transferred to [facility] for Neuro surgical consultation. Per discharge summary he had a follow-up head CT that showed no change. It sounds like this was a 7 mm left-sided parafalcine subacute subdural. No mass effect. . Related Data Home Medications ?Medication ?Instructions ?Recorded ?Confirmed bismuth subsalicylate 262 mg/15 mL 262 mg PO Q30-60M PRN 11/01/23 02/28/25 oral suspension (Kaopectate (bismuth subsalicylate)) calcium carbonate (Tums) 200 mg PO QHS 11/01/23 02/28/25 fluticasone propionate 50 1 spray intranasal QDAY 11/01/23 02/28/25 mcg/actuation nasal spray,suspension (Allergy Relief (fluticasone)) ibuprofen 200 mg tablet (Advil) 200 mg PO Q6H PRN 11/01/23 02/28/25 propylene glycol 0.6 % eye drops 1 drp ophthalmic (eye) QDAY PRN 11/01/23 02/28/25 (Systane Balance) melatonin 3 mg capsule 3 mg PO QDAY 01/25/25 02/28/25 Previous Rx's ?Medication ?Instructions ?Recorded amlodipine 5 mg-valsartan 160 1 tab PO QDAY #90 tabs 02/20/25 mg-hydrochlorothiazide 12.5 mg tablet furosemide 20 mg tablet (Lasix) 20 mg PO QAM edema #90 tabs 02/28/25 Allergies Allergy/AdvReac Type Severity Reaction Status Date / Time No Known Drug Allergies Allergy Verified 02/19/25 12:50 [facility] Medical History (Updated 02/28/25 @ 08:39 by Home Fabian MD) Edema ?R60.9 - Edema, unspecified (ICD-10) Subdural hematoma ?S06.5XAA - Traumatic subdural hemorrhage with loss of consciousness status unknown, initial encounter (ICD-10) Weight loss ?R63.4 - Abnormal weight loss (ICD-10) Foot pain ?M79.673 - Pain in unspecified foot (ICD-10) Fall ?W19.XXXA - Unspecified fall, initial encounter (ICD-10) Sciatica ?M54.30 - Sciatica, unspecified side (ICD-10) Edema ?R60.9 - Edema, unspecified (ICD-10) Essential tremor ?G25.0 - Essential tremor (ICD-10) Back pain ?M54.9 - Dorsalgia, unspecified (ICD-10) Hypertension ?I10 - Essential (primary) hypertension (ICD-10) Social History What is your current living situation?: I presently have a place to live Problems where you live: no known problems In the past 12 months, utilities in danger of being shut off: no In past 12 months, lack of transportation kept you from medical appts, meetings, work, or getting things needed for daily living: no In the past 12 mos, have been you worried that your food would run out before you had money to buy more?: never true In the past 12 mos, the food you bought just didn't last and you didn't have money to buy more?: never true Smoking Status: Never smoker How often do you have a drink containing alcohol: never AUDIT-C Alcohol total score: 0 Non-prescribed substance use: denies use How often does anyone, including family, friends and others, physically hurt you: never How often does anyone, including family, friends and others, insult or talk down to you: never How often does anyone, including family, friends and others, threaten you with harm: never How often does anyone, including family, friends and others, scream or curse at you: never Exam Narrative: Exam Narrative: Constitutional: Appears well-developed but very slender, almost cachectic.. Alert. Conversant. Non toxic. HENT: Head: Atraumatic. Nose: Nose normal. Right ear: Mastoid, pinna, canal are normal. Left ear: Mastoid normal. Canal completely occluded by cerumen. Cerumen was removed using a lighted ear curette. TM is normal. After removing the cerumen, There is a little bit of dry skin in the cerumen but no bleeding and no signs of otitis externa. Mouth/Throat: Oral mucosa is clear and moist. no trismus. Pharynx normal. Tonsils symmetric. No tonsillar enlargement, erythema, or exudate. Eyes: Conjunctivae normal. EOM normal. Pupils equal, round, and reactive to light. No scleral icterus. Neck: Normal range of motion. Neck supple. No tracheal deviation present. Cardiovascular: Normal rate, regular rhythm. No gallop. No friction rub. No murmur heard. Symmetric radial artery pulses Pulmonary/Chest: Effort normal. No stridor. No respiratory distress. No wheezes. No rales. No rhonchi . No tenderness. Abdominal: Soft.. No distension. No mass. No tenderness. No rebound. No guarding. Musculoskeletal: RUE: Normal range of motion. No tenderness. No deformity LUE: Normal range of motion. No tenderness. No deformity RLE: Normal range of motion. No edema. No tenderness. No deformity LLE: Normal range of motion. No edema. No tenderness. No deformity Neurological: Alert and oriented to person, place but not date. He has confused and when I come back for recheck he actually talks about me in the past tense as if I was a doctor some other day who had taken some wax out of his ear. Normal strength, battery checker strength 5/5 bilaterally. Biceps, triceps, deltoid, psoas, quad, hamstring, gastrocnemius are 5/5.. CN II-VII intact. No sensory deficit. GCS eye subscore is 4. GCS verbal subscore is 5. GCS motor subscore is 6. Normal coordination , but he is somewhat slow moving. Requires use of 2 canes for balance while he is walking. Skin: Skin is warm and dry. No rash noted. No pallor. Normal capillary refill. Psychiatric: Normal mood. Normal affect. At times he has a little bit irritated with his family member who is with him (his nephew's , Riaz) Const: Vital Signs, click to edit/add: Vital Signs - 24 hr 03/20/25 15:00 03/20/25 17:47 Temperature 97.8 F 97.8 F Pulse Rate [Pulse Oximeter] 68 71 Respiratory Rate 18 17 Blood Pressure [Ri ght Upper Arm] 127/66 145/78 H Pulse Oximetry 98 98 Oxygen Delivery Me thod Room Air Room Air Course Vital Signs Vital signs: Initial Vital Signs Temperature 97.8 F 03/20/25 15:00 Temperature Source Temporal Artery Scan 03/20/25 15:00 Pulse Rate 68 03/20/25 15:00 Respiratory Rate 18 03/20/25 15:00 Blood Pressure 127/66 03/20/25 15:00 Blood Pressure Mean 86 03/20/25 15:00 Blood Pressure Position Supine 03/20/25 15:00 Pulse Oximetry 98 03/20/25 15:00 Oxygen Delivery Method Room Air 03/20/25 15:00 Vital Signs Temperature 97.8 F 03/20/25 15:00 Pulse Rate 68 03/20/25 15:00 Respiratory Rate 18 03/20/25 15:00 Blood Pressure 127/66 03/20/25 15:00 Pulse Oximetry 98 03/20/25 15:00 Oxygen Delivery Method Room Air 03/20/25 15:00 Temperature 97.8 F 03/20/25 17:47 Pulse Rate 71 03/20/25 17:47 Respiratory Rate 17 03/20/25 17:47 Blood Pressure 145/78 H 03/20/25 17:47 Pulse Oximetry 98 03/20/25 17:47 Oxygen Delivery Method Room Air 03/20/25 17:47 Medications Administered Medications: Discontinued Medications Generic Name Dose Route Start Last Admin Trade Name Shahid PRN Reason Stop Dose Admin Sodium Chloride 1,000 mls @ 1,000 mls/hr 03/20/25 16:45 03/20/25 18:06 0.9 % Sodium Chloride 1000 Ml IV 03/20/25 17:44 Infused .Q1H MARIE Infusion MDM - Altered Mental Status MDM Narrative Medical decision making narrative: 84-year-old gentleman presenting to the ER today with his family with concern for onset of confusion and nonfocal altered mental status that began was 1st noticed overnight last night. Differential is broad. Consider possible metabolic or electrolyte imbalance. Labs show sodium of 138, potassium is elevated 5.2. Bicarb low at 19. Anion gap is normal at 14. Creatinine is 1.6 which is similar to last month but up slightly from his long-term baseline. Suspect this probably indicates some dehydration with a mild acute kidney injury. Blood sugars normal at 117. EKG is nonischemic and troponin is normal. He is not having any chest pain or shortness of breath or other clear cardiac symptoms. Chest x-ray is negative for pneumonia and he is not having any cough, shortness of breath, or hypoxia. Urinalysis is obtained and is negative for UTI. Head CT scan is abnormal. His previously known 7 mm left subdural hematoma is still present and unchanged, per Radiology report. He has a new right-sided subdural hematoma. This is very small, measuring only 4 mm. There is no associated cerebral edema or mass effect. Per Radiology this appears to be subacute. Discussed the imaging findings with the patient and his family. They deny any knowledge of any recent falls. However with the patient's altered mental status overnight, concerned that correlates with this subdural. At this point although he is confused, there is no clear indication for emergent neurosurgical intervention based on his CT. However he will need hospitalization for neuro monitoring and serial imaging. He and his family are agreeable to hospitalization and transfer to the [facility] where neurosurgery consultation is available. We placed a transfer request through the line access center and they indicate that there should be open beds at the [facility]. He had been transferred to [place] after his most recent subdural. Discussed imaging findings with the on-call neurologist for [facility], Dr. Sanchez. He agrees that the patient would be appropriate for transfer to [facility] for observation and serial imaging but at this point no need for emergent surgery. Unfortunately is going to be a bed delay for any site in the [facility]. Likely [place] (where the patient had been during his last admission) will be available. Subsequently discussed with medical operations supervisor from [facility]. They agree that the patient does not need emergent transfer admission to the ICU Subsequently discussed with hospitalist from [place], Dr. Sim, who graciously accepts. Updated patient and his family. They are waiting EMS transfer to the [facility]. Lab Data Labs: Lab Results 03/20/25 Range/Units 15:39 WBC 7.18 (4.50-11.00) K/uL RBC 3.76 L (4.30-5.90) m/uL Hgb 12.0 L (13.5-17.5) gm/dL Hct 36.4 L (37.0-53.0) % MCV 97 (80-100) fL MCH 32 (26-34) pg MCHC 33 (32-36) gm/dL RDW Coeff of [place] 12.3 (11.5-15.5) % Plt Count 280 (140-440) K/uL Neut % (Auto) 88.7 H (42.0-72.0) % Lymph % (Auto) 4.9 L (20-44) % [place] % (Auto) 5.7 (0.0-11.0) % Eos % (Auto) 0.3 (0.0-7.0) % Baso % (Auto) 0.3 (0.0-3.0) % Neut # (Auto) 6.40 (1.7-7.0) K/uL Lymph # (Auto) 0.40 L (0.90-2.90) K/uL [place] # (Auto) 0.40 (0.00-0.90) K/UL Eos # (Auto) 0.02 (0.00-0.50) K/uL Baso # (Auto) 0.02 (0.00-0.30) K/uL Abs Immat Gran (auto) 0.01 (0.00-0.30) K/uL Imm/Tot Granulo (auto) 0.1 % Sodium 138 (135-149) mmol/L Potassium 5.2 H (3.6-5.1) mmol/L Chloride 105 (96-114) mmol/L Carbon Dioxide 19 L (20-32) mmol/L Anion Gap 14 (7-15) mEq/L BUN 130 H (7-30) mg/dL Creatinine 1.6 H (0.5-1.5) mg/dL Estimated GFR 42 ml/min Glucose 117 H (60-115) mg/dL Lactate 0.7 (0.5-1.9) mmol/L Calcium 10.2 (8.4-10.6) mg/dL Troponin I 0.02 (0.01-0.04) ng/mL Urine Color Yellow (Yellow) Urine Appearance Clear (Clear) Urine pH 5.0 (5.0-8.5) Ur Specific [place] 1.010 (1.000-1.030) Urine Protein Negative (Negative) Urine Glucose (UA) Negative (Negative) Urine Ketones Negative (Negative) Urine Blood Negative (Negative) Urine Nitrite Negative (Negative) Urine Bilirubin Negative (Negative) Urine Urobilinogen 0.2 (0.2-1.0) Ur Leukocyte Esterase Negative (Negative) Urine RBC 0-2 (0-2) Urine WBC 0-2 (0-5) Ur Squamous Epith Cells None (None-Few) Urine Bacteria Few A (None) Imaging Data Chest x-ray: Attestation: I have reviewed the pertinent imaging results. Radiologist's impression: IMPRESSION: No acute cardiopulmonary process. CT scan - head: Attestation: I have reviewed the pertinent imaging results. My impression: By my review I do not see any obvious bleed. I received a phone call from [facility], Dr. Lombardo. She indicates that the previous left subdural hematoma is still present and unchanged. There is a new right-sided subdural hematoma that appears to be subacute. It is 4 mm in thickness. It is not associated with any edema. No mass effect. ECG Data Attestation: I personally reviewed and interpreted this ECG as follows: Interpretation: Normal sinus rhythm Rate 73 FL interval 156 Normal QRS axis. Right bundle-branch block pattern. No ST segment elevation or depression QTC 416, QTC 458 Discharge Plan Discharge Prescriptions: No Action ibuprofen [Advil] 200 mg tablet 200 mg PO Q6H PRN calcium carbonate [Tums] 200 mg calcium (500 mg) tablet,chewable 200 mg PO QHS bismuth subsalicylate [Kaopectate (bismuth subsalicy)] 262 mg/15 mL suspension 262 mg PO Q30-60M PRN Rx Instructions: do not exceed 8 doses in a 24 hour period Systane Balance 0.6 % drops 1 drp ophthalmic (eye) QDAY PRN fluticasone propionate [Allergy Relief (fluticasone)] 50 mcg/actuation spray,suspension 1 spray intranasal QDAY Rx Instructions: administer into each nostril furosemide [Lasix] 20 mg tablet 20 mg PO QAM Qty: 90 3RF melatonin 3 mg capsule 3 mg PO QDAY ryvefkhvui-xqkimtmww-esoyydung 5-160-12.5 mg tablet 1 tab PO QDAY Qty: 90 0RF Follow Up/Referrals: Home Fabian MD [Primary Care Provider, Internal Medicine]
--- NOTE | 2025-03-20 15:38 | CT_ITS ---
Patient: JANNIE JETT Facility:?[facility] Patient ID:?[id number] Site Patient ID:?[id number]. Site :?[id number] Study:?CT-Head WITHOUT-03/20/2025 4:09:50 PM Ordering Physician:Lenin Voss Final Report: INDICATION: Confusion beginning this morning TECHNIQUE: Head CT without contrast. COMPARISON: CT head without contrast 12/08/2024. FINDINGS: CSF spaces: Similar ex vacuo dilation of the left lateral ventricle. Brain parenchyma and extra-axial spaces: There is a subtle slightly hyperattenuating right subdural hematoma at the cerebral convexity measuring 4 millimeters in maximum thickness (series 6, image 61). Similar size of slightly hyperattenuating left parafalcine subdural hematoma measuring 8 millimeters in thickness, previously 7 millimeters (series 6, image 56). There are nonspecific low attenuation white matter changes consistent with chronic microvascular disease. No sign of mass or midline shift. Skull base and calvarium: The visualized paranasal sinuses and mastoid air cells demonstrate no acute or significant findings. The visualized orbits are grossly unremarkable status post bilateral lens replacement. No skull fractures. IMPRESSION: 1. New slightly hyperattenuating right subdural hematoma measuring 4 millimeters in thickness. 2. Similar size of left parafalcine subdural hematoma measuring up to 8 millimeters in thickness. 3. No significant mass effect. The above findings were communicated to Dr. Turcios by Dr. Lombardo at 16:23 on 03/20/2025. Please note that all CT scans at this facility use dose modulation, iterative reconstruction, and/or weight-based dosing when appropriate to reduce radiation dose to as low as reasonably achievable. Dictated by Tiffany Lombardo MD @ 03/20/2025 4:27:58 PM Signed by:?Tiffany Lombardo MD @03/20/2025 4:27:58 PM (Electronic Signature)
--- NOTE | 2025-03-20 15:39 | CRLHL7_ITS ---
For Patients: As a result of the Cures Act, medical imaging exams and procedure reports are released immediately into your electronic medical record. You may view this report before your referring provider. If you have questions, please contact your health care provider. INDICATION: : ALTERED MENTAL STATUS COMPARISON: Lumbar spine radiograph on May 18, 2024 TECHNIQUE: Two view(s) of the chest FINDINGS: The cardiomediastinal silhouette and pulmonary vasculature are unremarkable. There is no focal airspace consolidation, pleural effusion, or pneumothorax. Hyperinflated lungs. No displaced fractures. Remote T12 compression fracture deformity. IMPRESSION: No acute cardiopulmonary process. Dictated by Dillon Stephen MD @ 03/20/2025 4:27:37 PM (Electronically Signed)
[2025-03-20 15:59] LABS: Lactate* 0.7 mmol/L (0.5-1.9)
[2025-03-20 16:03] LABS: Hematocrit* 36.4 % (37.0-53.0); Hemoglobin* 12.0 gm/dL (13.5-17.5); Immature Granulocytes Abs Auto 0.01 K/uL (0.00-0.30); Immature Granulocytes Pct Auto 0.1 %; Mean Corpuscular HGB Conc 33 gm/dL (32-36); Mean Corpuscular Hemoglobin 32 pg (26-34); Mean Corpuscular Volume 97 fL (80-100); RDW Coefficient of Variation % 12.3 % (11.5-15.5); Red Blood Count* 3.76 m/uL (4.30-5.90); White Blood Count* 7.18 K/uL (4.50-11.00)
[2025-03-20 16:14] LABS: Lymphocytes Absolute Auto 0.40 K/uL (0.90-2.90)
[2025-03-20 16:15] LABS: Slide Review Reflex No
[2025-03-20 16:17] LABS: Chloride* 105 mmol/L (96-114); Potassium* 5.2 mmol/L (3.6-5.1); Sodium* 138 mmol/L (135-149)
[2025-03-20 16:20] LABS: Creatinine* 1.6 mg/dL (0.5-1.5); Estimated Glomerular Filt Rate 42 ml/min
[2025-03-20 16:21] LABS: Anion Gap 14 mEq/L (7-15); Calcium* 10.2 mg/dL (8.4-10.6); Carbon Dioxide* 19 mmol/L (20-32); Glucose* 117 mg/dL (60-115)
[2025-03-20 16:31] LABS: Appearance Urine Clear (Clear); Blood Urea Nitrogen* 130 mg/dL (7-30)
[2025-03-20 17:47] VITALS: BP 145/78; PULSE 71; RESP 17; TEMP 36.6; O2SAT 98
--- NOTE | 2025-03-20 18:45 | PC.NURSE ---
[facility] called for nurse to nurse report. Report given and transport to be arranged.
== END 2025-03-20 19:35 | disposition short-term general hospital (02) ==
LOC: ED 16:15
PROVIDERS: Emergency Provider Emergency Medicine; PCP Internal Medicine
DX: S06.5XAA Traumatic subdural hemorrhage with loss of consciousness status unknown, initial encounter (principal)
CPT/HCPCS: 36415; 70450; 71046; 80048; 81001; 83605; 84484; 85025; 87086; 93005; 99283; 99285; J7030

== ENCOUNTER 2025-03-20 19:22 | Outpatient (CLI) | payer MEDICARE, BC, SELFPAY | END 2025-03-20 19:23 | disposition home or self-care (01) | LOC: AMB 03-22 16:16 | PROVIDERS: PCP Internal Medicine; Visit Provider Family Medicine | DX: I62.00 Nontraumatic subdural hemorrhage, unspecified (principal) | CPT/HCPCS: A0425; A0429 ==

== ENCOUNTER 2025-03-28 09:41 | Outpatient (CLI) | payer MEDICARE, BC, SELFPAY | END 2025-03-28 09:42 | disposition home or self-care (01) | LOC: NFLDREF 09:41 | PROVIDERS: PCP Internal Medicine; Visit Provider Internal Medicine | DX: I10 Essential (primary) hypertension (principal) | CPT/HCPCS: 80048 ==

== ENCOUNTER 2025-05-17 13:52 | Outpatient (CLI) | payer MEDICARE, BC, SELFPAY | END 2025-05-17 13:53 | disposition home or self-care (01) | LOC: NFLDREF 13:53 | PROVIDERS: PCP Internal Medicine; Visit Provider Internal Medicine | DX: N28.9 Disorder of kidney and ureter, unspecified (principal) | CPT/HCPCS: 80048 ==